=== PATIENT | female | born 1970 | race Caucasian/White ===

== ENCOUNTER 2017-10-10 08:28 | Emergency (ER) | payer BC ==
[~2017-10-10] VITALS: Ht 162.6 cm; Wt 72.6 kg
[2017-10-10 08:44] VITALS: BP_SYST 131
[2017-10-10] MEDS ORDERED: NACL 0.9% 1,000 ML IV ONE (09:02)
[2017-10-10] MEDS ORDERED: KETOROLAC TROMETHAMINE 30 MG VIAL IVP ONE (09:15)
[2017-10-10 09:29] LABS: HEMOGLOBIN 15.1 g/dL (12.0-16.0); LYMPHOCYTES # (AUTO) 0.5 K/uL (1.0-5.5); LYMPHOCYTES % (AUTO) 7.2 % (20.5-51.5); MEAN CORPUSCULAR HEMOGLOBIN 31 pg (27-31); MEAN CORPUSCULAR HGB CONC 34 % (32-36); MEAN CORPUSCULAR VOLUME 91 fL (79.0-98.0); MONOCYTES # (AUTO) 0.4 K/uL (0.0-1.0); MONOCYTES % (AUTO) 4.9 % (1.7-9.3); PLATELET COUNT (AUTO) 212 K/uL (130-430); RED BLOOD CELL COUNT(AUTO) 4.83 MIL/uL (4.2-6.2); RED CELL DISTRIBUTION WIDTH 12.1 % (9.0-15.0); WHITE BLOOD COUNT (AUTO) 7.4 K/uL (4.8-10.8)
[2017-10-10 09:33] LABS: NEUTROPHILS % (AUTO) 87.9 % (40.0-70.0)
[2017-10-10 09:34] LABS: NEUTROPHILS # (AUTO) 6.4 K/uL (1.8-7.7)
[2017-10-10 09:35] LABS: CALCIUM 8.9 mg/dL (8.4-11.0); CREATININE 0.74 mg/dL (0.55-1.30); POTASSIUM 3.3 mmol/L (3.5-5.1)
[2017-10-10 09:37] LABS: BILIRUBIN,URINE NEGATIVE (NEGATIVE); BLOOD, URINE NEGATIVE (NEGATIVE); CLARITY/URINE CLEAR (CLEAR); COLOR,URINE YELLOW (YELLOW); GLUCOSE,URINE NEGATIVE (NEGATIVE); KETONES,URINE NEGATIVE (NEGATIVE); LEUKOCYTE ESTERASE ,URINE NEGATIVE (NEGATIVE); NITRITE, URINE NEGATIVE (NEGATIVE); PH,URINE >=9.0 (5.0-8.0); PROTEIN URINE TRACE (NEGATIVE); UROBILINOGEN,URINE 0.2 (0.2-1.0)
[2017-10-10 09:39] LABS: ALBUMIN 4.2 g/dL (3.4-4.8); TOTAL BILIRUBIN 0.5 mg/dL (0.0-1.0)
[2017-10-10 09:55] LABS: RBC,URINE 0-3 /HPF (0-3); WBC,URINE 0-3 /HPF (0-3)
[2017-10-10 09:56] LABS: BACTERIA,URINE FEW /HPF (None Seen); MUCUS,URINE None Seen /LPF (None Seen)
[2017-10-10 11:26] VITALS: BP_SYST 114
== END 2017-10-10 11:25 | disposition home or self-care (01) ==
LOC: SED 08:28
DX: K52.9 Noninfective gastroenteritis and colitis, unspecified (principal); Z90.49 Acquired absence of other specified parts of digestive tract
CPT/HCPCS: 36415; 74176; 80053; 81000; 81025; 83690; 85025; 96361; 96374; 99285; J1885; J7030

== ENCOUNTER 2018-07-23 04:28 | Emergency (ER) | payer BC ==
[~2018-07-23] VITALS: Ht 162.6 cm; Wt 77.1 kg
--- NOTE | 2018-07-23 04:32 | NUR ---
Patient to ER bed 8 to gown for evaluation. Side rails up. Report given to Carol CAMARENA.
[2018-07-23 04:33] VITALS: BP_SYST 127
--- NOTE | 2018-07-23 04:35 | NUR ---
Pt complains of bug bite to bilateral buttox on Saturday. Pt states she ended up having a fever and her throat started to close in causing difficulty swallowing. Pt reports throat is still sore. Pt also c/o abdominal pain. Noted asymmetrical erythema spot to bilateral inner buttox. Pt states area is tender to touch. Pt also has cough and states she has some chest pain.
--- NOTE | 2018-07-23 04:40 | NUR ---
ER Dr. Mathew at bedside examining patient.
[2018-07-23] MEDS ORDERED: NACL 0.9% 1,000 ML IV ONE (04:49)
[2018-07-23] MEDS ORDERED: KETOROLAC TROMETHAMINE 30 MG VIAL IVP ONE (05:00)
[2018-07-23] MEDS ORDERED: ONDANSETRON HCL 4 MG/2 ML VIAL IVP ONE (05:00)
--- NOTE | 2018-07-23 05:10 | NUR ---
Portable X Ray bedside well toelrated
[2018-07-23] MEDS ORDERED: DIPHENHYDRAMINE INJ 50 MG/ML VIAL IVP ONE (05:15)
[2018-07-23 05:21] LABS: BILIRUBIN,URINE 1+ (NEGATIVE); BLOOD, URINE 2+ (NEGATIVE); CLARITY/URINE CLEAR (CLEAR); COLOR,URINE YELLOW (YELLOW); GLUCOSE,URINE NEGATIVE (NEGATIVE); KETONES,URINE TRACE (NEGATIVE); LEUKOCYTE ESTERASE ,URINE 1+ (NEGATIVE); NITRITE, URINE NEGATIVE (NEGATIVE); PH,URINE 5.5 (5.0-8.0); PROTEIN URINE TRACE (NEGATIVE); UROBILINOGEN,URINE 0.2 (0.2-1.0)
[2018-07-23 05:24] LABS: BASOPHILS # (AUTO) 0.1 K/uL (0.0-0.2); BASOPHILS % (AUTO) 0.8 % (0.0-2.0); EOSINOPHILS # (AUTO) 0.2 K/uL (0.0-0.4); EOSINOPHILS % (AUTO) 2.7 % (0.0-4.0); HEMATOCRIT 44.6 % (36-48); HEMOGLOBIN 15.2 g/dL (12.0-16.0); LYMPHOCYTES # (AUTO) 0.9 K/uL (1.0-5.5); LYMPHOCYTES % (AUTO) 10.7 % (20.5-51.5); MEAN CORPUSCULAR HEMOGLOBIN 30 pg (27-31); MEAN CORPUSCULAR HGB CONC 34 % (32-36); MEAN CORPUSCULAR VOLUME 89 fL (79.0-98.0); MONOCYTES # (AUTO) 0.6 K/uL (0.0-1.0); MONOCYTES % (AUTO) 7.2 % (1.7-9.3); NEUTROPHILS # (AUTO) 6.6 K/uL (1.8-7.7); NEUTROPHILS % (AUTO) 78.6 % (40.0-70.0); PLATELET COUNT (AUTO) 227 K/uL (130-430); RED BLOOD CELL COUNT(AUTO) 5.03 MIL/uL (4.2-6.2); RED CELL DISTRIBUTION WIDTH 12.9 % (9.0-15.0); WHITE BLOOD COUNT (AUTO) 8.4 K/uL (4.8-10.8)
[2018-07-23 05:25] LABS: BACTERIA,URINE FEW /HPF (None Seen)
--- NOTE | 2018-07-23 05:29 | NUR ---
Note cedric in EDM - 07/23/18 at 0562 by [email or web address] Medications were given, pt tolerated well. no erythema, edema or infiltration
--- NOTE | 2018-07-23 05:29 | NUR ---
Medications were given, pt tolerated well. No adverse reaction, will continue to monitor.
[2018-07-23 05:37] LABS: CREATININE 0.7 mg/dL (0.55-1.30); POTASSIUM 3.7 mmol/L (3.5-5.1)
[2018-07-23 05:43] LABS: ALBUMIN 3.4 g/dL (3.4-4.8); TOTAL BILIRUBIN 0.3 mg/dL (0.0-1.0)
[2018-07-23] MEDS ORDERED: cefTRIAXone 1 GM in D5W 50 ML IV ONE (05:45)
[2018-07-23] MEDS ORDERED: cefTRIAXone 1 GM VIAL ONE (06:02)
--- NOTE | 2018-07-23 06:49 | NUR ---
ER Dr. Mathew at bedside explaining results to patient.
--- NOTE | 2018-07-23 07:06 | NUR ---
Report was given to NICOL Holder. All care endorsed.
--- NOTE | 2018-07-23 07:10 | NUR ---
Patient awake sitting up in gurney with at bedside.
[2018-07-23] MEDS ORDERED: PREDNISONE 20 MG TABLET PO ONE (07:15)
--- NOTE | 2018-07-23 07:30 | NUR ---
Patient given written and verbal discharge instructions and verbalizes understanding. ER MD discussed with patient the results and treatment provided. Patient in stable condition. ID arm band removed. IV catheter removed intact and dressing applied, no active bleeding. Rx of Prednisone & macrobid given. Patient educated on pain management and to follow up with PMD. Pain Scale 0/10. Opportunity for questions provided and answered. Medication side effect fact sheet provided.
[2018-07-23 08:12] VITALS: BP_SYST 142
== END 2018-07-23 07:30 | disposition home or self-care (01) ==
LOC: SED 04:28
DX: S30.860A Insect bite (nonvenomous) of lower back and pelvis, initial encounter (principal); J02.9 Acute pharyngitis, unspecified; N39.0 Urinary tract infection, site not specified; W57.XXXA Bitten or stung by nonvenomous insect and other nonvenomous arthropods, initial encounter; Y93.89 Activity, other specified; Y92.89 Other specified places as the place of occurrence of the external cause; Y99.8 Other external cause status
CPT/HCPCS: 36415; 71045; 80053; 81000; 83605; 83690; 85025; 86403; 87040; 87081; 87086; 96365; 96375; 99284; J0696; J1200; J1885; J2405; J7030; J7512

== ENCOUNTER 2020-03-11 18:21 | Emergency (ER) | payer BC, OTHER ==
[~2020-03-11] VITALS: Ht 162.6 cm; Wt 77.1 kg
[2020-03-11 18:21] VITALS: BP_SYST 111
[2020-03-11 20:18] VITALS: BP_SYST 111
== END 2020-03-11 21:17 | disposition home or self-care (01) ==
LOC: SED 18:21
DX: U07.1 COVID-19 (principal); J18.9 Pneumonia, unspecified organism; Z90.710 Acquired absence of both cervix and uterus
CPT/HCPCS: 71045; 93005; 99283

== ENCOUNTER 2020-12-21 06:19 | Day surgery (SDC) | payer OTHER, SELFPAY ==
[~2020-12-21] VITALS: Ht 162.6 cm; Wt 77.1 kg
[2020-12-21 07:15] LABS: HCG,QUAL RESULT NEGATIVE (NEGATIVE)
[2020-12-21] MEDS ORDERED: HYDROcodone/ACETAMIN 5-325 MG TAB (NORCO/ VICODIN) PO PRN (10:15)
[2020-12-21] MEDS ORDERED: OXYCODONE/ACETAMINOPHEN 5-325 TABLET PO PRN ×2 (10:15)
[2020-12-21] MEDS ORDERED: ONDANSETRON HCL 4 MG/2 ML VIAL IVP PRN ×2 (10:15→11:00)
[2020-12-21] MEDS ORDERED: fentaNYL CITRATE/PF 100 MCG/2 ML AMP ONE (10:40)
[2020-12-21] MEDS ORDERED: DEXAMETHASONE SOD PHOSPHATE 4 MG/ML VIAL ONE (10:40)
[2020-12-21] MEDS ORDERED: ONDANSETRON HCL 4 MG/2 ML VIAL ONE (10:40)
[2020-12-21] MEDS ORDERED: SUCCINYLCHOLINE CHLORIDE 20 MG/ML(QUELICIN) ONE (10:40)
[2020-12-21] MEDS ORDERED: ROCURONIUM BROMIDE 10 MG/ML (ZEMURON) ONE (10:40)
[2020-12-21] MEDS ORDERED: KETOROLAC TROMETHAMINE 30 MG VIAL ONE (10:40)
[2020-12-21] MEDS ORDERED: DESFLURANE 15 MIN GAS INH ONE (10:40)
[2020-12-21] MEDS ORDERED: LR 1,000 ML IV.SOLN IV ONE (10:40)
[2020-12-21] MEDS ORDERED: FUROSEMIDE 20 MG/2 ML VIAL ONE (10:40)
[2020-12-21] MEDS ORDERED: PROPOFOL 200MG/ 20ML VIAL (DIPRIVAN) IV ONE (10:40)
[2020-12-21] MEDS ORDERED: HYDROmorphone 2 MG/ML VIAL ONE (10:40)
[2020-12-21] MEDS ORDERED: ROPIVACAINE HCL/PF 0.2% EPIDURAL 200 ML PLAST..BAG ONE (10:40)
[2020-12-21] MEDS ORDERED: HYDROmorphone 1 MG/ML INJ. CARTRIDGE IVP PRN ×2 (11:00)
[2020-12-21] MEDS ORDERED: HYDROmorphone 2 MG/ML VIAL IVP PRN (11:00)
[2020-12-21 17:08] VITALS: BP_SYST 113
== END 2020-12-21 16:55 | disposition home or self-care (01) ==
LOC: SDS 06:19 → SMU 06:20 → SDS 16:55
PROVIDERS: ATTEND Specialist
DX: N80.9 Endometriosis, unspecified (principal); R10.2 Pelvic and perineal pain; N73.6 Female pelvic peritoneal adhesions (postinfective); M54.50 Low back pain, unspecified; Z91.040 Latex allergy status; K21.9 Gastro-esophageal reflux disease without esophagitis; Z79.899 Other long term (current) drug therapy; Z20.822 Contact with and (suspected) exposure to COVID-19
CPT/HCPCS: 58661; 58662; 64488; 84703; 88305; C1727; J0330; J1100; J1170; J1885; J1940; J2405; J2704; J3010; J7120; S2900; U0003; E0190

== ENCOUNTER 2020-12-21 18:11 | Emergency (ER) | payer OTHER, SELFPAY ==
[~2020-12-21] VITALS: Ht 162.6 cm; Wt 76.2 kg
[2020-12-21 18:11] VITALS: BP_SYST 149
--- NOTE | 2020-12-21 18:31 | NUR ---
BROUGHT BACK TO BED #6 AND TRIAGED. REPORT GIVEN TO GORDON
--- NOTE | 2020-12-21 18:32 | NUR ---
DR GARVIN AT BEDSIDE FOR EVALUATION
--- NOTE | 2020-12-21 18:38 | NUR ---
PT COMES TO ER WITH C/O BLOOD DRAINNG FROM HER PAIN PUMP THAT WAS INSERTED AN [facility]. REPORTS HAVING A TOTAL HYSTERECTOMY WITH DR DUTTON AN OUT PATIENT. 4 INCISION SITES NOTED,HOWEVER ONE CLOSEST TO LEFT GROIN AREA IS DRAINING SEROSANGINEOUS FLUID. PER PT, CATHETER IS OUT BUT I DID NOT OBSERVE THAT. AT BEDSIDE, CONCURRED. DR TA SOON TO COME IN FOR EXAM. PT REPORTS MILD PAIN AT THIS TIME.
[2020-12-21] MEDS ORDERED: HYDROcodone/ACETAMIN 5-325 MG TAB (NORCO/ VICODIN) PO ONE (19:00)
--- NOTE | 2020-12-21 19:50 | NUR ---
DR. GARVIN AT ON THE PHONE WITH MD DUTTON.
--- NOTE | 2020-12-21 19:55 | NUR ---
DR. GARVIN AT BEDSIDE GIVING PT UPDATE ON CONDITION.
--- NOTE | 2020-12-21 20:14 | NUR ---
Dr. Alfonso at bedside with patient
[2020-12-21 20:53] VITALS: BP_SYST 149
--- NOTE | 2020-12-21 20:53 | NUR ---
Patient given written and verbal discharge instructions and verbalizes understanding. DR. BHARATHI MAURER MD discussed with patient the results and treatment provided. Patient in stable condition. ID arm band removed. Patient educated on pain management and to follow up with PMD. Pain Scale 0/10. Opportunity for questions provided and answered. Medication side effect fact sheet provided.
== END 2020-12-21 20:53 | disposition home or self-care (01) ==
LOC: SED 18:11
DX: G89.18 Other acute postprocedural pain (principal)
CPT/HCPCS: 99283